=== PATIENT | male | born 1995 | race Caucasian/White ===

== ENCOUNTER 2017-11-22 19:06 | Emergency (ER) | payer BC ==
[2017-11-22] MEDS ORDERED: Amoxicillin/Clavulanate TAB* 875 MG PO ONE (19:21)
[2017-11-22 19:24] VITALS: BP 154/86
--- NOTE | 2017-11-22 20:57 | UC ---
Indy Coronado Thomas, scribed for Dick Cline MD on 11/22/17 at 1923 . Skin Complaint HPI - HPI Summary HPI Summary: The patient is a 22 year old male presenting to Urgent Care complaining of a dog bite to his lower lip that occurred earlier today. He complains of 2/10 pain to the area of the bite. The patient was watching a fellow students dog when he was bitten. The dog is a pit bull mix. The patient is up to date in his tetanus vaccine. 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 The dog is up to date in his vaccines. The patient additionally complains of rug rash to his left elbow. - History of Current Complaint Stated Complaint: DOG BITE Hx Obtained From: Patient Onset/Duration: Lasting Hours - earlier today, Still Present Timing: Constant Current Severity: Mild Pain Intensity: 2 Pain Scale Used: 0-10 Numeric Location: Other - Lower lip Character: Pain Aggravating Factor(s): Nothing Alleviating Factor(s): Nothing Associated Signs & Symptoms: Negative: Fever Related History: Other: - Dog bite - Allergy/Home Medications Allergies/Adverse Reactions: Allergies Allergy/AdvReac Type Severity Reaction Status Date / Time No Known Allergies Allergy Verified 11/22/17 19:20 Review of Systems Constitutional: Other - NEGATIVE: fever Skin: Other - Rug rash to left elbow ENT: Other - Dog bite to lower lip Is Patient Immunocompromised?: No All Other Systems Reviewed And Are Negative: Yes PMH/Surg Hx/FS Hx/Imm Hx Previously Healthy: No - NEGATIVE: DM, HTN - Surgical History Surgery Procedure, Year, and Place: HYDROCELE 2010. FACIAL BENIGN TUMOR REMOVED - Family History Known Family History: Positive: Other - Patient denies relevant FHx - Social History Occupation: Student Alcohol Use: Occasionally Substance Use Type: None Smoking Status (MU): Never Smoked Tobacco Physical Exam Triage Information Reviewed: Yes Vital Signs: Initial Vital Signs Temp 97.8 F 11/22/17 19:21 Pulse 100 11/22/17 19:21 Resp 18 11/22/17 19:21 BP 154/86 11/22/17 19:21 Pulse Ox 100 11/22/17 19:21 Vital Signs Reviewed: Yes - Additional Comments VITAL SIGNS: Reviewed. GENERAL: Patient is a well-developed and nourished male who is lying comfortable in the stretcher. Patient is not in any acute respiratory distress. HEAD AND FACE: Normocephalic EYES: PERRLA, EOMI x 2. EARS: Hearing grossly intact. MOUTH: Oropharynx within normal limits. He has two puncture wounds on his lower lip. NECK: Supple, trachea is midline, no adenopathy, no JVD, no carotid bruit. CHEST: Symmetric, no tenderness at palpation LUNGS: Clear to auscultation bilaterally. No wheezing or crackles. CVS: Regular rate and rhythm, S1 and S2 present, no murmurs or gallops appreciated. ABDOMEN: Soft, non-tender. Bowel sounds are normal. No abdominal abnormal pulsations. EXTREMITIES: Full ROM in all major joints, no edema, no cyanosis or clubbing. NEURO: Alert and oriented x 3. No acute neurological deficits. Speech is normal and follows commands. SKIN: Dry and warm. He has rug rash on the left elbow. Course/Dx - Course Course Of Treatment: The patient is a 22 year old male presenting to Urgent Care complaining of a dog bite to his lower lip that occurred earlier today. He complains of 2/10 pain to the area of the bite. The patient was watching a fellow students dog when he was bitten. The dog is a pit bull mix. The patient is up to date in his tetanus vaccine. 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 The dog is up to date in his vaccines. The patient additionally complains of rug rash to his left elbow. He has two puncture wounds on his lower lip. He has rug rash on the left elbow. At urgent care the patient was given Augmentin. The patient is diagnosed with Dog bite. The patient will be discharged home and instructed to follow up with primary care. The patient is prescribed Augmentin. - Diagnoses Provider Diagnoses: Dog bite Discharge - Discharge Plan Condition: Stable Disposition: HOME Prescriptions: Amoxicillin/Clavulanate TAB* [Augmentin TAB 875*] 875 mg PO BID #9 tab Patient Education Materials: Animal Bite (ED) Referrals: Robel Grewal MD [Primary Care Provider] - 3 Days Additional Instructions: Follow up with your primary care physician in three days. Return to urgent care for any new or worsening symptoms. The documentation as recorded by the Indy keen Thomas accurately reflects the service I personally performed and the decisions made by , Dick Cline MD.
== END 2017-11-22 19:46 | disposition home or self-care (01) ==
LOC: UCEAST 19:06
DX: S01.551A Open bite of lip, initial encounter (principal); W54.0XXA Bitten by dog, initial encounter; Y92.9 Unspecified place or not applicable
CPT/HCPCS: 99212; A9270-GY; G0463